=== PATIENT | female | born 1945 | race Caucasian/White ===

== ENCOUNTER 2020-11-29 12:16 | Emergency (ER) | payer MEDICARE, BC ==
[~2020-11-29] VITALS: Ht 154.9 cm; Wt 44.5 kg
[~2020-11-29 12:16] MED LIST: MECL-231 PO; ONDA4TAB12 PO
[2020-11-29 13:03] LABS: BASOPHILS % (AUTO) 0.6 % (0-1); EOSINOPHILS # (AUTO) 0.1 X10'3 (0-0.9); EOSINOPHILS % (AUTO) 1.3 % (0-6); HEMATOCRIT 42.9 % (35.0-45.0); HEMOGLOBIN 14.2 g/dl (12.0-16.0); MEAN CORPUSCULAR HEMOGLOBIN 30.3 PG (27.0-31.0); MEAN CORPUSCULAR HGB CONC 33.2 g/dL (33.0-36.5); MEAN CORPUSCULAR VOLUME 91.5 FL (78-98); MEAN PLATELET VOLUME 7.8 FL (7.4-10.4); MONOCYTES # (AUTO) 0.7 X10'3 (0-0.9); MONOCYTES % (AUTO) 10.2 % (2-12); NEUTROPHILS # (AUTO) 4.7 X10'3 (1.8-7.7); NEUTROPHILS % (AUTO) 71.9 % (42-75); PLATELET COUNT 227 X10'3 (140-440); RED BLOOD COUNT 4.69 X10'6 (4.20-5.60); RED CELL DISTRIBUTION WIDTH 13.4 % (11.5-14.5); WHITE BLOOD COUNT 6.5 X10'3 (4.5-11.0)
[2020-11-29 13:17] LABS: ALANINE AMINOTRANSFERASE 23 U/L (12-78); ALBUMIN 3.7 G/DL (3.4-5.0); ALKALINE PHOSPHATASE 101 IU/L (46-116); ANION GAP 12 (8-16); ASPARTATE AMINO TRANSFERASE 23 U/L (10-37); BILIRUBIN,TOTAL 0.4 MG/DL (0.1-1.0); BLOOD UREA NITROGEN 15 MG/DL (7-18); BUN/CREATININE RATIO 19.2 (6.6-38.0); CALCIUM 8.7 MG/DL (8.5-10.1); CHLORIDE 104 MMOL/L (99-107); CREATININE 0.78 MG/DL (0.40-0.90); GLUCOSE 127 MG/DL (70-104); POTASSIUM 3.7 MMOL/L (3.5-5.1); SODIUM 144 MMOL/L (135-145); TOTAL CARBON DIOXIDE 28.4 MMOL/L (24-32); TOTAL PROTEIN 7.3 G/DL (6.4-8.2); eGFR 72 ML/MIN
--- NOTE | 2020-11-29 13:55 | NUR ---
GIL Lucio aware of orthostatic vitals results. Pt denies any dizziness with the orthostatic vitals.
[2020-11-29 14:51] VITALS: BP 148/90
== END 2020-11-29 15:01 | disposition home or self-care (01) ==
LOC: ER 12:17
DX: I10 Essential (primary) hypertension (principal); R25.1 Tremor, unspecified; R42 Dizziness and giddiness; Z88.8 Allergy status to other drugs, medicaments and biological substances; Z79.899 Other long term (current) drug therapy
CPT/HCPCS: 36415; 70450; 71045; 80053; 83880; 84484; 85025; 93005; 99285

== ENCOUNTER 2021-05-19 07:24 | Day surgery (SDC) | payer MEDICARE, BC ==
[2021-05-13 12:02] LABS: BASOPHILS % (AUTO) 0.4 % (0-1); EOSINOPHILS % (AUTO) 0.5 % (0-6); LYMPHOCYTES % (AUTO) 16.2 % (21-51); MEAN CORPUSCULAR HEMOGLOBIN 30.1 PG (27.0-31.0); MEAN CORPUSCULAR HGB CONC 33.3 g/dL (33.0-36.5); MEAN CORPUSCULAR VOLUME 90.4 FL (78-98); MEAN PLATELET VOLUME 7.3 FL (7.4-10.4); MONOCYTES # (AUTO) 0.6 X10'3 (0-0.9); MONOCYTES % (AUTO) 9.4 % (2-12); NEUTROPHILS # (AUTO) 4.5 X10'3 (1.8-7.7); NEUTROPHILS % (AUTO) 73.5 % (42-75); PRE OP HEMATOCRIT 40.9 % (35.0-45.0); PRE OP HEMOGLOBIN 13.6 g/dL (12.0-16.0); PRE OP PLATELET COUNT 295 X10'3 (140-440); RED BLOOD COUNT 4.52 X10'6 (4.20-5.60); RED CELL DISTRIBUTION WIDTH 13.4 % (11.5-14.5)
[2021-05-13 12:09] LABS: CLARITY,URINE Clear (Clear); COLOR,URINE STRAW (Yellow); UA COLLECTION TYPE CLN CATCH MIDSTREAM
[2021-05-13 12:10] LABS: GLUCOSE, URINE NEGATIVE (Neg); KETONES,URINE NEGATIVE (Neg); LEUKOCYTE ESTERASE ,URINE NEGATIVE (Neg); NITRITES, URINE NEGATIVE (Neg); OCCULT BLOOD,URINE NEGATIVE (Neg); PROTEIN,URINE NEGATIVE (Neg); UROBILINOGEN,URINE 0.2 E.U/dL (0.2-1.0)
[2021-05-13 12:19] LABS: ALBUMIN 3.6 G/DL (3.4-5.0); ALBUMIN/GLOBULIN RATIO 1.1 (1.1-1.5); ALKALINE PHOSPHATASE 96 IU/L (46-116); BLOOD UREA NITROGEN 15 MG/DL (7-18); BUN/CREATININE RATIO 23.8 (6.6-38.0); CALCIUM 8.9 MG/DL (8.5-10.1); CHLORIDE 107 MMOL/L (99-107); CREATININE 0.63 MG/DL (0.40-0.90); PRE OP ALT 23 U/L (30-65); PRE OP ANION GAP 9 (8-16); PRE OP AST 24 U/L (10-37); PRE OP BILIRUB, TOTAL 0.3 MG/DL (0.0-1.0); PRE OP GLUCOSE 87 MG/DL (70-104); PRE OP SODIUM 145 MMOL/L (135-145); TOTAL CARBON DIOXIDE 28.7 MMOL/L (24-32); eGFR > 90 ML/MIN
[~2021-05-19] VITALS: Ht 154.9 cm; Wt 44.5 kg
[2021-05-19] VITALS (11 sets, daily range): BP systolic 120–141; BP diastolic 55–96
[~2021-05-19 07:24] MED LIST changes: -MECL-231 PO; +NO HOME MEDS; -ONDA4TAB12 PO; +cefazolin/dext.iso 2gm/50ml 50 ML IV ONE; +famotidine 20mg tablet PO ONE; +ringers solution, lacted 1,000 ML IV SCH
[2021-05-19] MEDS ORDERED: MIDAZolam 5mg/ml 2ml vial IV PRN (08:11)
[2021-05-19] MEDS ORDERED: fentaNYL/PF 50MCG/1 ML 2ML syringe ONE (09:01)
[2021-05-19] MEDS ORDERED: midazolam 1 mg/ML 2ml injection ONE (09:02)
[2021-05-19] MEDS ORDERED: glycopyrrolate 0.2mg/ml inj ONE (09:03)
[2021-05-19] MEDS ORDERED: propofol inj 20 ML IV ONE (09:03)
[2021-05-19] MEDS ORDERED: rocuronium 10mg/ml inj IV ONE (09:03)
[2021-05-19] MEDS ORDERED: ondansetron/PF 4mg/2ml inj ONE (09:03)
[2021-05-19] MEDS ORDERED: neostigmine methylsulfate 1 MG/ML 10ml vial ONE (09:03)
[2021-05-19] MEDS ORDERED: LIDOcaine 2% (20mg/ml) 5ml vial ONE (09:03)
[2021-05-19] MEDS ORDERED: dexamethasone sod phosphate 4mg/ml inj. ONE (09:05)
[2021-05-19] MEDS ORDERED: BUPIVAcaine/PF 2.5mg/ml (0.25%) 10ml vial ONE (09:42)
[2021-05-19] MEDS ORDERED: sevoflurane 250ml liquid IH ONE (10:05)
[2021-05-19] MEDS ORDERED: fentaNYL/PF 50MCG/1 ML 2ML syringe IV PRN ×2 (10:25)
[2021-05-19] MEDS ORDERED: hydrALAZINE 20mg/ml inj. IV PRN (10:25)
[2021-05-19] MEDS ORDERED: labetalol 20mg/4ml (5mg/ml) syringe IV PRN (10:25)
[2021-05-19] MEDS ORDERED: morphine 2 MG/ML inj. syringe IV PRN (10:25)
[2021-05-19] MEDS ORDERED: morphine 4 MG/ML inj SYRINge IV PRN (10:25)
[2021-05-19] MEDS ORDERED: ringers solution, lacted 1,000 ML IV SCH (10:25)
[2021-05-19] MEDS ORDERED: ondansetron/PF 4mg/2ml inj IV PRN (10:25)
[2021-05-19] MEDS ORDERED: labetalol 20mg/4ml (5mg/ml) syringe IV ONE (11:43)
--- NOTE | 2021-05-19 11:49 | NUR ---
Received from OR via BED, accompanied by Anesthesiologist DR. CLEMONS and report given by Anesthesiolgist AND OR NURSE. PT ARRIVED DROWSY, ABLE TO RESPOND TO VERBAL STIMULI, 20 G LEFT HAND, 3 LAP SITES WITH SCANT DRAINAGE, 10L 02 WITH MASK 100% SAT, DENIES PAIN AT THIS TIME, PELON ROSE FOR COMFORT. Addendum: 05/19/21 at 1213 by Zhanna Valverde RN Amended: Links added.
--- NOTE | 2021-05-19 13:29 | NUR ---
ALL DISCHARGE CRITERIA HAS BEEN MET. VSS, PAIN AT A TOLERANCE LEVEL, ABLE TO SAFELY AMBULATE AND TRANSFER. IV TAKEN OUT WITHOUT COMPLICATIONS. ALL DISCHARGE INSTRUCTIONS AND TEACHING COMPLETED WITH ALL QUESTIONS ANSWERED. PATIENT TAKEN OUT VIA WHEELCHAIR TO PERSONAL VEHICLE WHERE NIECE DROVE PT HOME. Addendum: 05/19/21 at 1344 by Zhanna Valverde RN Amended: Links added.
== END 2021-05-19 13:29 | disposition home or self-care (01) ==
LOC: PAS 07:24
PROVIDERS: ATTEND Surgery
DX: K41.90 Unilateral femoral hernia, without obstruction or gangrene, not specified as recurrent (principal); K42.9 Umbilical hernia without obstruction or gangrene; F41.9 Anxiety disorder, unspecified; I10 Essential (primary) hypertension; M81.0 Age-related osteoporosis without current pathological fracture; Z20.822 Contact with and (suspected) exposure to COVID-19; Z85.820 Personal history of malignant melanoma of skin; Z86.14 Personal history of Methicillin resistant Staphylococcus aureus infection; Z79.899 Other long term (current) drug therapy; Z88.2 Allergy status to sulfonamides
CPT/HCPCS: 36415; 49652; 80053; 81003; 82948; 85025; 93005; C1758; C1781; J1100; J2001; J2250; J2405; J2704; J2710; J3010; J3490; U0003; U0005; Z7506; Z7508; Z7512; A4215; A4618; J7120